=== PATIENT | female | born 2000 | race Caucasian/White ===

== ENCOUNTER 2022-04-03 09:36 | Emergency (ER) | payer BC ==
[2022-04-03] VITALS (8 sets, daily range): BP systolic 100–120; BP diastolic 56–78
[~2022-04-03 09:36] MED LIST: ACNE MEDICATION; ALLERGY10 M1 PO; AMOXICILLIN500 MG PO; AMOXICILLIN875 MG PO; AUGMENTIN875TAB PO; CEPHALEXIN500 M1 PO; CIPRODEX1 ML AD; CIPROFLOXACN500 MG PO; FLONASE NASAL50 MCG; FLUARIX QUADRIV1 IN1 IM; MEDDOSEPAK PO; SPRINTEC 2828 DAY PO; TRIAMCINOLON0.11 EX
== END 2022-04-03 11:25 | disposition home or self-care (01) | DRG 392 ==
LOC: ED 09:36
DX: R10.9 Unspecified abdominal pain (principal); R11.2 Nausea with vomiting, unspecified

== ENCOUNTER 2024-09-26 15:58 | Emergency (ER) | payer OTHER ==
[~2024-09-26] VITALS: Ht 167.6 cm; Wt 77.0 kg
[2024-09-26] VITALS (7 sets, daily range): BP systolic 114–129; BP diastolic 63–75
[2024-09-26] MEDS ORDERED: SODIUM CHLORIDE 0.9% 1,000 ML IV ONE (16:10)
[2024-09-26 16:39] LABS: BASO% 0.2 % (0-3); EOS% 1.2 % (0-8); IMMATURE GRANULOCYTES 0.2 % (0.0-5.0); LYMPH% 31.4 % (15-41); MEAN CELL VOLUME 97.3 fL CALC (80.0-100.0); MEAN CORPUSCULAR HGB 32.3 pG CALC (26.0-32.0); MEAN CORPUSCULAR HGB CONC 33.2 g/dL CAL (32.0-36.0); NEUT# 7.41 thou/uL (2.00-7.15); RED BLOOD COUNT 3.71 mill/uL (4.20-5.60); RED CELL DISTRI WIDTH 12.7 % (11.5-15.5)
[2024-09-26 16:41] LABS: HEMATOCRIT 36.1 % (37.0-47.0)
[2024-09-26 16:50] LABS: ALBUMIN 3.7 g/dL (3.2-5.0); BILIRUBIN, TOTAL 0.3 mg/dL (0.02-1.3); CREATININE 0.6 mg/dL (0.5-1.0); POTASSIUM 3.6 mmol/l (3.5-5.1); TOTAL PROTEIN 6.6 g/dL (6.3-8.2)
[2024-09-26 17:22] LABS: URINE BILIRUBIN - DIPSTICK Negative (NEGATIVE); URINE BLOOD DIPSTICK Negative (NEGATIVE); URINE COLOR Yellow; URINE GLUCOSE - DIPSTICK Negative (NEGATIVE); URINE KETONE Trace mg/dL (NEGATIVE); URINE LEUK ESTERASE Negative (NEGATIVE); URINE NITRITE - DIPSTICK Negative (Negative); URINE PROTEIN - DIPSTICK Negative (NEG-TRACE); URINE UROBILINOGEN - DIPSTICK 0.2 E.U./dL (0.2)
== END 2024-09-26 17:33 | disposition home or self-care (01) | DRG 833 ==
LOC: ED 15:58
PROVIDERS: Family Medicine
DX: O26.812 Pregnancy related exhaustion and fatigue, second trimester (principal); Z3A.23 23 weeks gestation of pregnancy